=== PATIENT | male | born 1960 | race Caucasian/White ===

== ENCOUNTER 2017-08-22 10:40 | Emergency (ER) | payer MEDICAID, OTHER ==
[~2017-08-22] VITALS: Ht 180.3 cm; Wt 93.0 kg
--- NOTE | 2017-08-22 10:58 | NUR ---
Patient discharged to home in stable conditon. Written and verbal after care instructions given. Patient verbalizes understanding of instructions.pt walks in steady gait. pt deneis any dizziness or headache, walks in steady gait.
[2017-08-22 10:59] VITALS: BP 149/98
== END 2017-08-22 11:00 | disposition home or self-care (01) ==
LOC: ER 10:40
DX: I10 Essential (primary) hypertension (principal); R51 Headache
CPT/HCPCS: 99283; A4663